=== PATIENT | male | born 1975 | race Caucasian/White ===

== ENCOUNTER → 2017-03-16 | Outpatient (CLI) | payer OTHER ==
[~2017-03-16] MED LIST: BETAMETHASONE V15 GM TOP; CIPRO PO
--- NOTE | ~2017-03-16 | CT113 ---
[facility]. [facility] A Service of [facility] RADIOLOGY TEXT RESULTS PATIENT: RA CALVO LOCATION: [facility] : 77 UNIT #: [id number] AGE: [address]: John Saxena MD SEX: M ORDER DR: [id number] [place] [id number] O MR#: [id number] Acc #: [id number] NAME: RA CALVO. : 1975 SEX: M STUDY DATE/TIME: 03/16/2017 13:49 UNIT: [facility] ROOM: STUDY DESCRIPTION: CT Sinuses Wo Contrast Attending Physician: John Saxena III, M.D. Referring Physician: John Saxena III, M.D. Ordering Physician: John Saxena III, M.D. Primary Care Physician: Gee Mota M.D. MEDICAL IMAGING REPORT This report is preliminary unless electronic signature is present. EXAM Sinus CT, no contrast, 03/16/2017. CLINICAL HISTORY Cough, short of air for weeks. Sinus drainage since October. PROCEDURE Axial unenhanced CT with multiplanar reformats. This CT exam was performed with one or more of the following radiation dose reduction techniques: automatic exposure control, adjustment of mA and/or kV according to patient size, and iterative reconstruction. COMPARISON None. FINDINGS The frontal sinuses are normally pneumatized and there is [id number]-[id number] right greater left frontal mucosal thickening. The ethmoid air cells are normally pneumatized and there is moderate bilateral ethmoid mucosal. The maxillary sinuses are normally pneumatized. While there is a tiny right maxillary retention cyst, there is also mucosal thickening including the right infundibulum. There is fjzr-yc-[id number] left maxillary mucosal thickening, and the infundibulum is narrowed and may in fact be occluded by mucosal thickening. The sphenoid sinus is normally pneumatized. There is mild right chamber dominance in both sinuses are normally aerated. The nasal septum bows rightward and there may be a small rightward septal spur. [facility] A Service of [facility] RADIOLOGY TEXT RESULTS PATIENT: RA CALVO LOCATION: [facility] : 77 UNIT #: [id number] AGE: [address]: John Saxena MD SEX: M ORDER DR: There is no bone erosion or destruction but there may be a left maxillary air-fluid level. IMPRESSION Diffuse sinus mucosal thickening, no bone erosion or destruction. Dictated by... Roscoe Law M.D. THIS IS AN ELECTRONICALLY VERIFIED REPORT Roscoe Law M.D. at 03/22/2017 5:05 PM BERNARDO/lakesha TD: 03/16/2017 20:21 JOB #: [id number] MEDICAL IMAGING REPORT Page 1 of 1
== END | disposition home or self-care (01) ==
LOC: SCT 11:00
DX: J32.4 Chronic pansinusitis (principal)
CPT/HCPCS: 70486